=== PATIENT | male | born 1950 | race African-American/Black ===

== ENCOUNTER 2016-07-06 20:43 | Inpatient (IN) | payer OTHER ==
[~2016-07-06] VITALS: Ht 167.6 cm; Wt 68.0 kg
[~2016-07-06 20:43] MED LIST: AMLODIPINE; ASPI81CH43 PO; CITA-77 PO; DONETAB6 PO; HYDR25TA4 PO; TRAZ50TA2 PO
[2016-07-06 21:43] LABS: Basophils # (auto) 0 uL; Basophils % (auto) 0.4 % (0.0-2.0); Eosinophils # (auto) 0.1 uL; Eosinophils % (auto) 1.6 % (0.0-7.0); Hematocrit 42.5 % (41.0-53.0); Hemoglobin 14.2 g/dL (13.5-17.5); Lymphocytes # (auto) 1.1 uL; Mean Corpuscular Hemoglobin 29.9 pg (28.0-32.0); Mean Corpuscular Hgb Conc. 33.4 g/dL (32.0-36.0); Mean Corpuscular Volume 89.4 fL (80.0-100.0); Mean Platelet Volume 8.1 fL (7.4-10.4); Monocytes # (auto) 0.4 uL; Monocytes % (auto) 5.5 % (0.0-12.0); Neutrophils # (auto) 5.1 uL; Neutrophils % (auto) 76.5 % (37.0-80.0); Platelet Count (auto) 271 10^3/uL (140-450); Red Cell Distribution Width 13.9 % (11.6-16.0); White Blood Cell 6.7 10^3/uL (4.4-10.8)
[2016-07-06 22:05] LABS: Albumin 3.5 g/dL (3.4-5.0); Amylase 57 U/L (25-115); Anion Gap 12 (5-15); Aspartate Aminotransferase 18 U/L (15-37); Blood Urea Nitrogen 26 mg/dL (7-18); Calcium 8.8 mg/dL (8.5-10.1); Carbon Dioxide 24 mmol/L (21-32); Chloride 109 mmol/L (98-107); GFR African American 71 mL/min; GFR Non-African American 59 mL/min; Glucose 139 mg/dL (74-106); Potassium 3.7 mmol/L (3.5-5.1); Sodium 145 mmol/L (136-145)
[2016-07-06 22:09] LABS: Alkaline Phosphatase 106 U/L (45-117); Bilirubin, Total 0.4 mg/dL (0.2-1.0); Total Protein 7.3 g/dL (6.4-8.2)
[2016-07-06 22:22] LABS: INR 1.04 (0.9-1.15); Partial Thromboplastin Time 28.7 sec (22.64-33.71); Prothrombin Time 10.7 sec (9.37-12.3)
[2016-07-06] MEDS ORDERED: ASPirin 325 MG TAB PO ONE (22:30)
[2016-07-06 23:58] LABS: Urine RBC None Seen /hpf (0 - 3)
[2016-07-07] MEDS ORDERED: MEMA1TAB2 PO (00:05)
[2016-07-07] MEDS ORDERED: VALP250S16 PO (00:05)
[2016-07-07] MEDS ORDERED: GABA-339 PO (00:05)
[2016-07-07] MEDS ORDERED: LISI-646 PO (00:05)
[2016-07-07 00:09] LABS: Urine Bilirubin Negative (Negative); Urine Blood Negative /uL (Negative); Urine Color Yellow (Yellow); Urine Glucose Normal (Normal); Urine Ketone Negative (Negative); Urine Mucus FEW (None Seen); Urine Nitrite Negative (Negative); Urine Urobilinogen Normal (Negative); Urine pH 5.5 (5.0-8.0)
[2016-07-07] MEDS ORDERED: MORPHINE SULF INJ 2 MG/ML SYRINGE 1ML IV PRN (00:30)
[2016-07-07] MEDS ORDERED: NITROGLYCERIN 0.4 MG SL TAB SL PRN (00:30)
[2016-07-07] MEDS ORDERED: HYDROcodone-ACET 5/325MG TAB PO PRN (00:30)
[2016-07-07] MEDS ORDERED: DOCUSATE SOD 100 MG CAP PO PRN (00:30)
[2016-07-07] MEDS ORDERED: ONDANSETRON HCL 4 MG/2 ML VIAL IV PRN (00:30)
[2016-07-07] MEDS ORDERED: ACETAMINOPHEN 325 MG TAB PO PRN (00:30)
[2016-07-07 01:30] VITALS: BP 117/75
[2016-07-07 01:40] VITALS: BP 117/87
[2016-07-07 05:30] VITALS: BP 108/70
[2016-07-07 09:00] VITALS: BP 119/74
[2016-07-07] MEDS ORDERED: amLODIPine BESYLATE 5 MG TAB PO SCH (10:00)
[2016-07-07] MEDS ORDERED: HCTZ 25 MG TAB PO SCH (10:00)
[2016-07-07] MEDS ORDERED: ENOXAPARIN SOD 40 MG/0.4 ML SYRINGE SC SCH (10:00)
[2016-07-07] MEDS ORDERED: CITALOPRAM HYDROBR 20 MG TAB PO SCH (10:00)
[2016-07-07] MEDS ORDERED: ASPirin 81 mg TAB PO SCH (10:00)
[2016-07-07] MEDS ORDERED: FAMOTIDINE 20 MG TAB PO SCH (10:00)
[2016-07-07 12:47] VITALS: BP 130/80
[2016-07-07 14:28] VITALS: BP 130/80
[2016-07-07] MEDS ORDERED: DONEPEZIL HYDROCHLORIDE 5 MG TAB PO SCH (22:00)
== END 2016-07-07 16:00 | disposition home or self-care (01) | DRG 206 ==
LOC: EDBD 20:43 → ER 20:49 → TELE 20:50 → TELE-WESTW 07-07 01:22
PROVIDERS: ADMIT Internal Medicine; ATTEND Internal Medicine
DX: M94.0 Chondrocostal junction syndrome [Tietze] (principal); F02.80 Dementia in other diseases classified elsewhere, unspecified severity, without behavioral disturbance, psychotic disturbance, mood disturbance, and anxiety; I25.10 Atherosclerotic heart disease of native coronary artery without angina pectoris; F17.210 Nicotine dependence, cigarettes, uncomplicated; G30.9 Alzheimer's disease, unspecified; I12.9 Hypertensive chronic kidney disease with stage 1 through stage 4 chronic kidney disease, or unspecified chronic kidney disease; I70.0 Atherosclerosis of aorta; K57.90 Diverticulosis of intestine, part unspecified, without perforation or abscess without bleeding; N18.3 Chronic kidney disease, stage 3 (moderate); F15.10 Other stimulant abuse, uncomplicated; F12.10 Cannabis abuse, uncomplicated; Z82.49 Family history of ischemic heart disease and other diseases of the circulatory system; Z79.82 Long term (current) use of aspirin; Z79.899 Other long term (current) drug therapy
CPT/HCPCS: 36415; 71010; 74176; 80053; 81001; 82150; 83690; 84484; 85025; 85610; 85730; 93005